=== PATIENT | male | born 1975 | race Caucasian/White ===

== ENCOUNTER 2017-01-03 02:09 | Emergency (ER) | payer OTHER ==
--- NOTE | 2017-01-03 03:42 | ED ORDER SUMMARY ---
..... Patient: NORMA NIX [facility] VisitID: [id number] [place] [address] 41y, M Registration Date/Time: 01/03/2017 ORDER SHEET Weight: 87.0 kg (stated) Allergies: Penicillins, Sulfa Antibiotics GENERAL ORDERS: Chest 1V Urgent (02:24 01/03/2017 JQuivey R.N. per protocol) (Ack 2:30 CHagerty ER Grinder Set Up Operator Jig) (Cancelled: CHANGE TO 2 VIEW2:36 CHagerty ER Grinder Set Up Operator Jig) Cable Stretcher And Tester (Continuous) (CP) (02:01/03/2017 JQuivey R.N. per protocol) (2:30 JQuivey R.N.) (Ack 2:30 CHagerty ER Grinder Set Up Operator Jig) Cardiac Panel Stat (02:01/03/2017 JQuivey R.N. per protocol) (Ack 2:30 CHagerty ER Grinder Set Up Operator Jig) Pulse oximeter (02:01/03/2017 JQuivey R.N. per protocol) (2:30 JQuivey R.N.) (Ack 2:30 CHagerty ER Grinder Set Up Operator Jig) EKG - ER Stat (02:01/03/2017 JQuivey R.N. per protocol) (2:26 CHategekimana) Chest 2V Urgent (02:32 01/03/2017 Vidal Shah) (2:45 GUnger) UA-Culture if indicated Urgent (02:01/03/2017 Vidal Shah) (Ack 2:46 CHagerty ER Grinder Set Up Operator Jig) BNP Urgent (02:01/03/2017 Vidal Shah) (Ack 2:46 CHagerty ER Grinder Set Up Operator Jig) (2:48 JQuivey R.N.) D-Dimer Urgent (02:01/03/2017 Vidal Shah) (Ack 2:46 CHagerty ER Grinder Set Up Operator Jig) (2:48 JQuivey R.N.) MEDICATION ORDERS: Aspirin PO 325 mg (NOW) (02:24 01/03/2017 JQuivey R.N. per protocol) (2:25 JQuivey R.N.) IV FLUIDS: IV Saline Lock (02:29 01/03/2017 Laurie Andrew per protocol) (2:30 Laurie Andrew) IV NS : initial bolus none -, then 1000 mL/hr for X1 (NOW) (03:12 01/03/2017 Vidal Shah) (Ack 3:16 JRheaivecole R.N.) (3:39 JRheaivey R.N.) ORDER SHEET NOTES: [Electronically signed by Gus Ruiz R.N. (04:00 01/03/2017)] [Electronically signed by Aden Arshad Dr. (04:15 01/03/2017)] [Electronically locked/signed by Gus Ruiz R.N. (04:00 01/03/2017)]
--- NOTE | 2017-01-03 03:42 | ED NURSING NOTES ---
Clinical Report - Nurses [facility] [place] [address] 01/03/2017 2:10 Patient: NORMA NIX TRIAGE Triage time 02:15. Acuity: LEVEL 3. Chief Complaint: CHEST DISCOMFORT and (Chest pressure , SOB, left arm numbness). Alert. SEPSIS SCREEN: Sepsis Screen. Negative (no infection suspected/documented). --02:58 Gus Ruiz R.N. 02:15 01/03/17. BP: 128/96. HR: 103. RR: 16. O2 saturation: 94% on room air. Temp: 98 F (oral). Pain level now: 09/22. --02:58 Gus Ruiz R.N. Weight: 87 kg stated. Height/Length: 70 inches Per Patient. BMI: 27.5. --02:19 Gus Ruiz R.N. Medications None. --02:17 Gus Ruiz R.N. Allergies Penicillins. Sulfa Antibiotics. --02:17 Gus Ruiz R.N. History Arrived by private vehicle. Historian: patient. Accompanied by friend. Primary physician (None). Onset. (1 hours ago). Treatment ENGINEERING INSTRUCTOR: (Exedrin). PAST MEDICAL HX: Immunizations: up-to-date. SOCIAL HX: Current some days smoker (cigar). Occasional alcohol use. No drug use. No infectious disease exposure. ABUSE ASSESSMENT: No report of abuse. FALL RISK ASSESSMENT: Fall risk assessment completed. No fall risk identified. NUTRITIONAL RISK ASSESSMENT: The nutritional risk assessment revealed no deficiencies. FUNCTIONAL ASSESSMENT: Functional assessment: no impairments noted. LEARNING NEEDS ASSESSMENT: The learning needs assessment revealed no barriers. SKIN INTEGRITY ASSESSMENT: Skin integrity risk assessment completed. No skin integrity risk identified. --02:58 Gus Ruiz R.N. PROBLEMS: no known problems. ADDITIONAL SURGERIES: Appendectomy. --02:18 Gus Ruiz R.N. Interventions ID band on patient. To treatment room. --02:58 Gus Ruiz R.N. PHYSICAL ASSESSMENT 02:16. Ambulatory to room. Patient gowned. GENERAL / NEURO / PSYCH: Alert. Oriented X 4. HEENT: Mucous membranes are pink. RESPIRATORY: Respirations not labored. Breath sounds within normal limits. SKIN: Skin is warm and dry. Normal skin turgor. --02:21 Gus Ruiz R.N. NURSING PROGRESS NOTES 02:16. Head of bed elevated. Two patient identifiers checked. Call light placed in reach. Side rails up x 1. Bed placed in lowest position. Brakes of bed on. Patient ready for evaluation- chart flagged. --02:19 Gus Ruiz R.N. 02:19. EKG time: (218). EKG was performed by a tech and shown to the ED physician. --02:20 Gus Ruiz R.N. 02:20. dope mixer, pulse oximeter and NIBP monitor placed on patient; monitor alarms on. --02:20 Gus Ruiz R.N. 02:25 01/03/2017 Aspirin PO 325 mg given. Allergies verified and confirmed 5 rights. --02:25 Gus Ruiz R.N. 02:26 01/03/2017 Site #1 started via IV in the right hand with an 20g angiocath, with aseptic technique and good blood return; one attempt. Blood drawn: rainbow set. Labeled in the presence of the patient and sent to the lab. Saline lock flushed with 10 mL saline. --02:30 Gus Ruiz R.N. 02:43. Patient transported to radiology by stretcher with tech. --02:55 Gus Ruiz R.N. 02:47. Patient returned from radiology by stretcher with tech. --02:55 Gus Ruiz R.N. 02:53 Patient informed about need for urine - pt reports unable to void now. --02:56 Gus Ruiz R.N. 02:55 Patient given cup of ice water. --02:57 Gus Ruiz R.N. 03:10 Patient complaining of being lightheaded. Cardiac rhythm: normal sinus rhythm. The patient is calm and resting quietly. RESPIRATORY: No respiratory distress. SKIN: Skin is warm and dry. Skin color within normal limits. --03:11 Gus Ruiz R.N. 03:08 01/03/17. BP: 124/76. HR: 88. RR: 18. O2 saturation: 95%. Pain level now: 07/25. --03:11 Gus Ruiz R.N. 03:11 01/03/17. BP: 118/84. HR: 93. RR: 17. O2 saturation: 96% on room air. --03:11 Gus Ruiz R.N. 03:22 01/03/2017 Started bag #1 1000 mL IV Fluids IV NS (Saline); at 1000 mL/hr over 1 hour(s) via site #1 --03:39 Gus Ruiz R.N. 03:57. The patient is calm and resting quietly. RESPIRATORY: No respiratory distress. SKIN: Skin is warm and dry. Skin color within normal limits. --04:00 Gus Ruiz R.N. DISPOSITION / DISCHARGE 03:53 01/03/2017 IV Fluids IV NS Discontinued: bag #1 infused. Total amount infused: 725 mL. IV patency established. IV site checked: no pain, redness, or swelling. IV flushed thoroughly. --03:53 Gus Ruiz R.N. 03:55 01/03/2017 Site #1 removed upon discharge. Catheter intact. Bandage applied. --04:00 Gus Ruiz R.N. Departure time: 03:59. Condition at departure: stable. No learning barriers present. Discharge instructions provided and reviewed with vinyl hanger and the patient. Patient and vinyl hanger verbalized understanding. Written instructions provided in Setswana. The patient was discharged home and accompanied by vinyl hanger. He left the Emergency Department ambulatory and via private vehicle. Body Painter driving. FALL RISK ASSESSMENT: Fall risk assessment completed. No fall risk identified. --04:00 Gus Ruiz R.N. 03:51 01/03/17. BP: 116/78. HR: 93. RR: 19. O2 saturation: 97% on room air. Pain level now: 07/25. --04:00 Gus Ruiz R.N. Locked/Released at 01/03/2017 4:00 by Gus Ruiz R.N.
--- NOTE | 2017-01-03 03:42 | ED NURSING NOTES ---
Clinical Report - Nurses [facility] [place] [address] 01/03/2017 2:10 Patient: NORMA NIX TRIAGE Triage time 02:15. Acuity: LEVEL 3. Chief Complaint: CHEST DISCOMFORT and (Chest pressure , SOB, left arm numbness). Alert. SEPSIS SCREEN: Sepsis Screen. Negative (no infection suspected/documented). --02:58 Gus Ruiz R.N. 02:15 01/03/17. BP: 128/96. HR: 103. RR: 16. O2 saturation: 94% on room air. Temp: 98 F (oral). Pain level now: 09/22. --02:58 Gus Ruiz R.N. Weight: 87 kg stated. Height/Length: 70 inches Per Patient. BMI: 27.5. --02:19 Gus Ruiz R.N. Medications None. --02:17 Gus Ruiz R.N. Allergies Penicillins. Sulfa Antibiotics. --02:17 Gus Ruiz R.N. History Arrived by private vehicle. Historian: patient. Accompanied by friend. Primary physician (None). Onset. (1 hours ago). Treatment SALES DESIGNER: (Exedrin). PAST MEDICAL HX: Immunizations: up-to-date. SOCIAL HX: Current some days smoker (cigar). Occasional alcohol use. No drug use. No infectious disease exposure. ABUSE ASSESSMENT: No report of abuse. FALL RISK ASSESSMENT: Fall risk assessment completed. No fall risk identified. NUTRITIONAL RISK ASSESSMENT: The nutritional risk assessment revealed no deficiencies. FUNCTIONAL ASSESSMENT: Functional assessment: no impairments noted. LEARNING NEEDS ASSESSMENT: The learning needs assessment revealed no barriers. SKIN INTEGRITY ASSESSMENT: Skin integrity risk assessment completed. No skin integrity risk identified. --02:58 Gus Ruiz R.N. PROBLEMS: no known problems. ADDITIONAL SURGERIES: Appendectomy. --02:18 Gus Ruiz R.N. Interventions ID band on patient. To treatment room. --02:58 Gus Ruiz R.N. PHYSICAL ASSESSMENT 02:16. Ambulatory to room. Patient gowned. GENERAL / NEURO / PSYCH: Alert. Oriented X 4. HEENT: Mucous membranes are pink. RESPIRATORY: Respirations not labored. Breath sounds within normal limits. SKIN: Skin is warm and dry. Normal skin turgor. --02:21 Gus Ruiz R.N. NURSING PROGRESS NOTES 02:16. Head of bed elevated. Two patient identifiers checked. Call light placed in reach. Side rails up x 1. Bed placed in lowest position. Brakes of bed on. Patient ready for evaluation- chart flagged. --02:19 Gus Ruiz R.N. 02:19. EKG time: (218). EKG was performed by a tech and shown to the ED physician. --02:20 Gus Ruiz R.N. 02:20. animal rides manager, pulse oximeter and NIBP monitor placed on patient; monitor alarms on. --02:20 Gus Ruiz R.N. 02:25 01/03/2017 Aspirin PO 325 mg given. Allergies verified and confirmed 5 rights. --02:25 Gus Ruiz R.N. 02:26 01/03/2017 Site #1 started via IV in the right hand with an 20g angiocath, with aseptic technique and good blood return; one attempt. Blood drawn: rainbow set. Labeled in the presence of the patient and sent to the lab. Saline lock flushed with 10 mL saline. --02:30 Gus Ruiz R.N. 02:43. Patient transported to radiology by stretcher with tech. --02:55 Gus Ruiz R.N. 02:47. Patient returned from radiology by stretcher with tech. --02:55 Gus Ruiz R.N. 02:53 Patient informed about need for urine - pt reports unable to void now. --02:56 Gus Ruiz R.N. 02:55 Patient given cup of ice water. --02:57 Gus Ruiz R.N. 03:10 Patient complaining of being lightheaded. Cardiac rhythm: normal sinus rhythm. The patient is calm and resting quietly. RESPIRATORY: No respiratory distress. SKIN: Skin is warm and dry. Skin color within normal limits. --03:11 Gus Ruiz R.N. 03:08 01/03/17. BP: 124/76. HR: 88. RR: 18. O2 saturation: 95%. Pain level now: 07/25. --03:11 Gus Ruiz R.N. 03:11 01/03/17. BP: 118/84. HR: 93. RR: 17. O2 saturation: 96% on room air. --03:11 Gus Ruiz R.N. 03:22 01/03/2017 Started bag #1 1000 mL IV Fluids IV NS (Saline); at 1000 mL/hr over 1 hour(s) via site #1 --03:39 Gus Ruiz R.N. 03:57. The patient is calm and resting quietly. RESPIRATORY: No respiratory distress. SKIN: Skin is warm and dry. Skin color within normal limits. --04:00 Gus Ruiz R.N. DISPOSITION / DISCHARGE 03:53 01/03/2017 IV Fluids IV NS Discontinued: bag #1 infused. Total amount infused: 725 mL. IV patency established. IV site checked: no pain, redness, or swelling. IV flushed thoroughly. --03:53 Gus Ruiz R.N. 03:55 01/03/2017 Site #1 removed upon discharge. Catheter intact. Bandage applied. --04:00 Gus Ruiz R.N. Departure time: 03:59. Condition at departure: stable. No learning barriers present. Discharge instructions provided and reviewed with video operator and the patient. Patient and video operator verbalized understanding. Written instructions provided in Estonian. The patient was discharged home and accompanied by video operator. He left the Emergency Department ambulatory and via private vehicle. Riprap Worker driving. FALL RISK ASSESSMENT: Fall risk assessment completed. No fall risk identified. --04:00 Gus Ruiz R.N. 03:51 01/03/17. BP: 116/78. HR: 93. RR: 19. O2 saturation: 97% on room air. Pain level now: 07/25. --04:00 Gus Ruiz R.N. Locked/Released at 01/03/2017 4:00 by Gus Ruiz R.N.
--- NOTE | 2017-01-03 03:42 | ED CLINICAL REPORT ---
Clinical Report - Physicians/Mid Levels [facility] [address] [place] [address] 01/03/2017 2:10 Patient: NORMA NIX Time Seen: 02:12; initial patient contact. Arrived- By private vehicle. Historian- patient. HISTORY OF PRESENT ILLNESS Chief Complaint: DYSPNEA. This started just prior to arrival and is still present. It was abrupt in onset. The dyspnea is described as mild. He has not had worsening of dyspnea with walking, exertion, supine position or coughing. No improvement of dyspnea with rest or sitting upright. The patient has had a cough, chest discomfort, chills, calf pain and palpitations. He has experienced sweating episodes. No sputum production, fever, wheezing, dyspnea on exertion or chest pain. No foot swelling, orthopnea, anxiety or dizziness. Similar symptoms previously: None. Recent medical care: The patient was seen recently in a clinic. ( Just completed Abx and Prednisone for mild pneumonia). REVIEW OF SYSTEMS The patient has had nausea. No vomiting, abdominal pain or fatigue. All systems otherwise negative, except as recorded above. PAST HISTORY Negative. Problems: no known problems. Surgeries: Appendectomy. Medications: None. Allergies: Penicillins. Sulfa Antibiotics. SOCIAL HISTORY Current some days smoker (cigar). No alcohol use or drug use. ADDITIONAL NOTES The nursing notes have been reviewed. PHYSICAL EXAM Appearance: Alert. No acute distress. Eyes: Eyes normal inspection. ENT: Pharynx normal. Neck: Normal inspection. No jugular venous distention. CVS: Normal heart rate and rhythm. Heart sounds normal. Respiratory: No respiratory distress. Breath sounds normal. Skin: Skin warm and dry. Normal skin color. Extremities: No calf tenderness. No lower extremity edema. Neuro: Oriented X 3. LABS, X-RAYS, AND EKG EKG: EKG time: (0219). No acute process. No acute ischemia. Normal EKG. Normal sinus rhythm. Rate: 96. Normal P waves. Normal CANDIE. Normal QRS complex. Normal axis. Normal ST and T waves, QT and QTc. Prior EKG unavailable. The study has been interpreted contemporaneously by me. The study has been independently viewed by me. The EKG appears to be a good tracing. I agree with and confirm the computer reading of the EKG. Interpretation time: 218. Chest X-ray: No acute disease. Normal lung markings present. Normal heart size. Mediastinum normal. Great vessels normal. No infiltrate. Views: PA and lateral. Technique: good. The X-rays were independently viewed by me and interpreted contemporaneously by me. Prior films were not available for comparison. Laboratory Tests: CBC w Diff: (RILEY: 01/03/2017 02:26) ( MsgRcvd 01/03/2017 02:39) Final results Test Result Flag Units (Reference) WHITE BLOOD COUNT 8.6 K/uL (4.5-11.5) RED BLOOD COUNT 5.30 M/uL (4.50-5.90) HEMOGLOBIN 16.5 gm/dL (13.5-17.5) HEMATOCRIT 46.5 % (41.0-53.0) MEAN CELL VOLUME 88 fL (80-100) MEAN CORPUSCULAR HGB 31 pg (26-34) MEAN CORPUSCULAR HGB CONC 36 g/dL (31-37) RED CELL DISTRIBUTION WIDTH 12.8 % (11.6-14.8) PLATELET COUNT 210 K/uL (150-400) NEUTROPHIL % 53.5 % (50-75) LYMPH % 24.5 L % (25-40) MONO % 8.1 % (3-14) EOSINOPHIL % 13.2 H % (0-4) BASOPHIL % 0.7 % (0-2) [id number]: (RILEY: 01/03/2017 02:26) ( MsgRcvd 01/03/2017 02:48) Final results Test Result Flag Units (Reference) D-DIMER QUANTITATIVE 0.36 ug/mLFEU (0.27-0.52) The primary value of this quantitative assay relates toits negative predictive value (i.e. exclusion) of pulmonaryembolism/deep vein thrombosis/DIC.Elevated levels of d-dimer may also occur with:, age, cancer, inflammation, liver disease,post-op, infection, hematoma, coronary disease, peripheralarteriopathy, bleeding disorders and thrombolytic treatment.Results should be correlated with other clinical andradiological data.Testing Methodology: Latex Immunoassay BNP: (RILEY: 01/03/2017 02:26) ( MsgRcvd 01/03/2017 03:07) Final results Test Result Flag Units (Reference) B-TYPE NATRIURETIC PEPTIDE < 5.0 L pg/ml (5-100) CHEM 13 PANEL: (RILEY: 01/03/2017 02:26) ( MsgRcvd 01/03/2017 02:55) Final results Test Result Flag Units (Reference) GLUCOSE 178 H mg/dL (70-110) BUN 16 mg/dL (7-18) CREATININE 0.9 mg/dL (0.6-1.3) Estimated GFR >60 mL/min Estimated GFR- >60 mL/min Note: Persistent reduction over 3 months in eGFR<60 mL/min/1.73 m2 defines CKD. Patients with eGFR values>=60 mL/min/1.73 m2 may also have CKD if evidence ofpersistent proteinuria. Additional information may be foundat www.kidney.org. SODIUM 139 mmol/L (136-145) POTASSIUM 3.9 mmol/L (3.5-5.1) CHLORIDE 104 mmol/L (98-107) CARBON DIOXIDE 23 mmol/L (21-32) CALCIUM 8.3 L mg/dL (8.5-10.1) TOTAL PROTEIN 6.8 g/dL (6.4-8.2) ALBUMIN 3.8 g/dL (3.3-5.0) BILIRUBIN, TOTAL 0.5 mg/dL (0.0-1.0) ALKALINE PHOSPHATASE 116 U/L (46-116) AST (SGOT) 6 L U/L (15-37) ALT (SGPT) 11 L U/L (12-78) MAGNESIUM 2.0 mg/dL (1.8-2.4) CPK 95 U/L (24-260) TROPONIN I <0.05 ng/mL (0.00-1.5) TROPONIN REFERENCE RANGE:<0.1 NEGATIVE0.1-1.5 INDETERMINANT>1.5 POSITIVE . PROGRESS AND PROCEDURES Disposition: Discharged home in good and improved condition. Condition: good. CLINICAL IMPRESSION Atypical chest pain .12 lead EKG performed. INSTRUCTIONS Your Current Medications: CONTINUE TAKING THE FOLLOWING MEDICATIONS: None*. Follow-up: Follow up with your doctor in about three days. Call for an appointment. Screening today revealed the patient's blood pressure to be in the pre-hypertensive range. The patient should follow up with a primary care provider for blood pressure management. (Electronically signed by Aden Arshad Dr. 01/03/2017 4:15)
--- NOTE | 2017-01-03 03:42 | ED ORDER SUMMARY ---
..... Patient: NORMA NIX OrderSheet [facility] VisitID: [id number] [place] [address] 41y, M Registration Date/Time: 01/03/2017 ORDER SHEET Weight: 87.0 kg (stated) Allergies: Penicillins, Sulfa Antibiotics GENERAL ORDERS: Chest 1V Urgent (02:24 01/03/2017 JQuivey R.N. per protocol) (Ack 2:30 CHagerty ER Roll Up Helper) (Cancelled: CHANGE TO 2 VIEW2:36 CHagerty ER Roll Up Helper) C2 Tactical Analysis Technician (Continuous) (CP) (02:01/03/2017 JQuivey R.N. per protocol) (2:30 JQuivey R.N.) (Ack 2:30 CHagerty ER Roll Up Helper) Cardiac Panel Stat (02:01/03/2017 JQuivey R.N. per protocol) (Ack 2:30 CHagerty ER Roll Up Helper) Pulse oximeter (02:01/03/2017 JQuivey R.N. per protocol) (2:30 JQuivey R.N.) (Ack 2:30 CHagerty ER Roll Up Helper) EKG - ER Stat (02:01/03/2017 JQuivey R.N. per protocol) (2:26 CHategekimana) Chest 2V Urgent (02:32 01/03/2017 Vidal Shah) (2:45 GUnger) UA-Culture if indicated Urgent (02:01/03/2017 Vidal Shah) (Ack 2:46 CHagerty ER Roll Up Helper) BNP Urgent (02:01/03/2017 Vidal Shah) (Ack 2:46 CHagerty ER Roll Up Helper) (2:48 JQuivey R.N.) D-Dimer Urgent (02:01/03/2017 Vidal Shah) (Ack 2:46 CHagerty ER Roll Up Helper) (2:48 JQuivey R.N.) MEDICATION ORDERS: Aspirin PO 325 mg (NOW) (02:24 01/03/2017 JQuivey R.N. per protocol) (2:25 JQuivey R.N.) IV FLUIDS: IV Saline Lock (02:29 01/03/2017 Laurie Andrew per protocol) (2:30 Laurie Andrew) IV NS : initial bolus none -, then 1000 mL/hr for X1 (NOW) (03:12 01/03/2017 Vidal Shah) (Ack 3:16 JRheaivecole R.N.) (3:39 JRheaivey R.N.) ORDER SHEET NOTES: [Electronically signed by Gus Ruiz R.N. (04:00 01/03/2017)] [Electronically signed by Aden Arshad Dr. (04:15 01/03/2017)] [Electronically locked/signed by Gus Ruiz R.N. (04:00 01/03/2017)]
--- NOTE | 2017-01-03 04:16 | ED MAR SUMMARY ---
..... Medication Administration Record [facility] [address] [place] [address] Patient: NORMA NIX Visit ID: [id number] 41y, M Weight: 87.0 kg Height/Length: 70 in BMI: 27.5 ALLERGIES: Sulfa Antibiotics, Penicillins Given 02:25 01/03/2017 Gus Ruiz RArlethN. Medication Administered: ASPIRIN [PO], Dose: 325 mg PO. Medication Ordered: Aspirin PO 325 mg (NOW). Start 03:22 01/03/2017 Gus Ruiz, R.N., Stop 03:53 01/03/2017 Gus Ruiz, RArlethN. Medication Administered: IV NS (SALINE), Dose: IV Fluids over 1 hour(s), Rate: 1000 mL/hr, Dispensed: 1000 mL bag, Site: #1 right hand. Medication Ordered: IV NS : initial bolus none -, then 1000 mL/hr for X1 (NOW).
--- NOTE | 2017-01-03 04:16 | ED MAR SUMMARY ---
..... Medication Administration Record [facility] [address] [place] [address] Patient: NORMA NIX Visit ID: [id number] 41y, M Weight: 87.0 kg Height/Length: 70 in BMI: 27.5 ALLERGIES: Sulfa Antibiotics, Penicillins Given 02:25 01/03/2017 Gus Ruiz RArlethN. Medication Administered: ASPIRIN [PO], Dose: 325 mg PO. Medication Ordered: Aspirin PO 325 mg (NOW). Start 03:22 01/03/2017 Gus Ruiz, R.N., Stop 03:53 01/03/2017 Gus Ruiz, RArlethN. Medication Administered: IV NS (SALINE), Dose: IV Fluids over 1 hour(s), Rate: 1000 mL/hr, Dispensed: 1000 mL bag, Site: #1 right hand. Medication Ordered: IV NS : initial bolus none -, then 1000 mL/hr for X1 (NOW).
--- NOTE | 2017-01-03 04:16 | ED DISCHARGE INSTRUCTIONS ---
Patient: NORMA NIX General Instructions [facility] VisitID: [id number] [place] [address] 41y, M Registration Date/Time: 01/03/2017 Atypical chest pain .12 lead EKG performed. INSTRUCTIONS Your Current Medications: CONTINUE TAKING THE FOLLOWING MEDICATIONS: None*. Follow-up: Follow up with your doctor in about three days. Call for an appointment. Screening today revealed the patient's blood pressure to be in the pre-hypertensive range. The patient should follow up with a primary care provider for blood pressure management. ADDITIONAL INFORMATION Chest Pain, Noncardiac Based on your visit today, the exact cause of your chest pain is not certain. Your condition does not seem serious and your pain does not appear to be coming from your heart. However, sometimes the signs of a serious problem take more time to appear. Therefore, please watch for the warning signs listed below. Home Care: Rest today and avoid strenuous activity. Take any prescribed medicine as directed. Follow Up with your doctor or this facility as instructed or if you do not start to feel better within 24 hours. Get Prompt Medical Attention if any of the following occur: A change in the type of pain: if it feels different, becomes more severe, lasts longer, or begins to spread into your shoulder, arm, neck, jaw or back Shortness of breath or increased pain with breathing Cough with dark colored sputum (phlegm) or blood Weakness, dizziness, or fainting Fever of 100.4F (38C) or higher, or as directed by your healthcare provider Swelling, pain or redness in one leg You have been given the following additional information: Chest Pain, Noncardiac (Electronically signed by Aden Arshad Dr. 01/03/2017 4:15)
--- NOTE | 2017-01-03 04:16 | ED MED RECONCILIATION SUMMARY ---
Patient: NORMA NIX Medication Reconciliation Report [facility] VisitID: [id number] [address] [place] [address] 41y, M Registration Date/Time: 01/03/2017 Weight: 87.0 kg Height/Length: 70 in. BMI: 27.5 ALLERGIES: Penicillins, Sulfa Antibiotics The patient's Home Medications are listed below: NONE. The source(s) of the original Home Medication information: Not obtained. The following Medications were given to the patient in the Emergency Department: Aspirin [PO] PO 325 mg, administered: 01/03/2017 2:25:00 AM IV NS IV Fluids bolus 0, then 1000 mL/hr, administered: 01/03/2017 3:22:00 AM The following Medications were prescribed to the patient: None.
--- NOTE | 2017-01-03 04:16 | ED MED RECONCILIATION SUMMARY ---
Patient: NORMA NIX Medication Reconciliation Report [facility] VisitID: [id number] [address] [place] [address] 41y, M Registration Date/Time: 01/03/2017 Weight: 87.0 kg Height/Length: 70 in. BMI: 27.5 ALLERGIES: Penicillins, Sulfa Antibiotics The patient's Home Medications are listed below: NONE. The source(s) of the original Home Medication information: Not obtained. The following Medications were given to the patient in the Emergency Department: Aspirin [PO] PO 325 mg, administered: 01/03/2017 2:25:00 AM IV NS IV Fluids bolus 0, then 1000 mL/hr, administered: 01/03/2017 3:22:00 AM The following Medications were prescribed to the patient: None.
--- NOTE | 2017-01-03 04:16 | ED DISCHARGE INSTRUCTIONS ---
Patient: NORMA NIX General Instructions [facility] VisitID: [id number] [place] [address] 41y, M Registration Date/Time: 01/03/2017 Atypical chest pain .12 lead EKG performed. INSTRUCTIONS Your Current Medications: CONTINUE TAKING THE FOLLOWING MEDICATIONS: None*. Follow-up: Follow up with your doctor in about three days. Call for an appointment. Screening today revealed the patient's blood pressure to be in the pre-hypertensive range. The patient should follow up with a primary care provider for blood pressure management. ADDITIONAL INFORMATION Chest Pain, Noncardiac Based on your visit today, the exact cause of your chest pain is not certain. Your condition does not seem serious and your pain does not appear to be coming from your heart. However, sometimes the signs of a serious problem take more time to appear. Therefore, please watch for the warning signs listed below. Home Care: Rest today and avoid strenuous activity. Take any prescribed medicine as directed. Follow Up with your doctor or this facility as instructed or if you do not start to feel better within 24 hours. Get Prompt Medical Attention if any of the following occur: A change in the type of pain: if it feels different, becomes more severe, lasts longer, or begins to spread into your shoulder, arm, neck, jaw or back Shortness of breath or increased pain with breathing Cough with dark colored sputum (phlegm) or blood Weakness, dizziness, or fainting Fever of 100.4F (38C) or higher, or as directed by your healthcare provider Swelling, pain or redness in one leg You have been given the following additional information: Chest Pain, Noncardiac (Electronically signed by Aden Arshad Dr. 01/03/2017 4:15)
--- NOTE | 2017-01-03 05:20 | DIAGNOSTIC IMAGING REPORT ---
PROCEDURE: XR CHEST 2 VIEW INDICATION: SHORTNESS OF BREATH TECHNIQUE: PA and lateral views. COMPARISON: None. FINDINGS: Allowing for overlying wires and electrodes, lungs are clear. Heart and mediastinum are normal. Thorax is normal. IMPRESSION: 1. Negative chest.
== END 2017-01-03 03:59 | disposition home or self-care (01) ==
LOC: ED SRH 02:09
DX: R07.89 Other chest pain (principal); F17.200 Nicotine dependence, unspecified, uncomplicated; Z88.0 Allergy status to penicillin; Z88.2 Allergy status to sulfonamides
CPT/HCPCS: 90100; 90616; 91320; 91556; 92610; 92720; 95059